=== PATIENT | female | born 1960 | race Two or more races ===

== ENCOUNTER 2023-12-02 21:39 | Emergency (ER) | payer MEDICARE, MEDICAID, SELFPAY ==
--- NOTE | ~2023-12-02 | XR_ITS ---
EXAMINATION: XR KNEE, RIGHT CLINICAL INFORMATION: Fall, right knee pain COMPARISON: None available. TECHNIQUE: Four views of the right knee. FINDINGS: No fracture. There is a trace suprapatellar knee joint effusion. Alignment is anatomic. Joint spaces are maintained. No abnormal soft tissue calcification. XR/XR knee RT 3V IMPRESSION: Trace knee joint effusion. No acute osseous process
--- NOTE | ~2023-12-02 | CT_ITS ---
EXAMINATION: CT ABDOMEN AND PELVIS WITHOUT CONTRAST CLINICAL INFORMATION: Fall with back and hip pain COMPARISON: None available. TECHNIQUE: Multidetector volumetric imaging was performed from the superior aspect of the liver through the pubic symphysis. Sagittal and coronal reformatted images were obtained on the technologist's workstation. This CT examination was performed using dose optimization techniques as appropriate, variously including the following: *Automated exposure control *Adjustment of mA and/or kV according to patient size (this includes techniques or standardized protocols for targeted exams where dose is matched to indication/reason for exam; i.e. extremities or head) *Use of iterative reconstruction technique DLP: 914 mGy-cm FINDINGS: LUNG BASES: The visualized lung bases are unremarkable. LIVER, GALLBLADDER, AND BILIARY TREE: The liver is normal in size, shape, and attenuation. 1.5 cm simple cyst in the right lobe of liver No biliary ductal dilatation is present. The gallbladder is unremarkable with no evidence of radiopaque gallstones, gallbladder wall thickening, or obvious pericholecystic inflammatory changes. PANCREAS: Unremarkable. SPLEEN: Unremarkable. ADRENAL GLANDS: Unremarkable. KIDNEYS AND URETERS: The kidneys are normal in size, shape, and attenuation. No hydronephrosis, hydroureter, or calculi seen. No perinephric stranding. BLADDER: Unremarkable. GASTROINTESTINAL TRACT: The small and large bowel are unremarkable. The appendix is unremarkable. ABDOMINAL WALL: No significant hernia is appreciated. LYMPH NODES: Normal. VASCULAR: Scattered atherosclerotic wall calcifications PELVIC VISCERA: The uterus and adnexa are unremarkable. OSSEOUS STRUCTURES: Degenerative disc disease in the lumbar spine. No acute fractures. CT/CT abdomen pelvis wo IV con IMPRESSION: No acute process. No acute fracture. Degenerative disc disease in the lumbar spine.
--- NOTE | ~2023-12-02 | CT_ITS ---
EXAMINATION: CT HEAD WITHOUT CONTRAST CLINICAL INFORMATION: Headache. COMPARISON: None available. TECHNIQUE: Contiguous axial imaging was performed from the skull base to vertex without intravenous administration of contrast. This CT examination was performed using dose optimization techniques as appropriate, variously including the following: *Automated exposure control *Adjustment of mA and/or kV according to patient size (this includes techniques or standardized protocols for targeted exams where dose is matched to indication/reason for exam; i.e. extremities or head) *Use of iterative reconstruction technique DLP: 673 mGy-cm FINDINGS: The lateral, third and fourth ventricles are normally outlined. The cortical sulci and basal cisterns are normally outlined as well. There is no acute territorial defect, hemorrhage or midline shift. The extra-axial spaces are unremarkable. Calvarium: Intact. Maxillofacial sinuses and mastoids: Clear as visualized. CT/CT head/brain wo IV con IMPRESSION: No acute intracranial pathology.
[2023-12-02 21:51] VITALS: BP 149/76; PULSE 75; RESP 18; TEMP 36.6; O2SAT 98
[2023-12-02 21:52] VITALS: BP 144/78; BP 149/76; PULSE 75; PULSE 84; RESP 16; TEMP 36.6; O2SAT 98; BMI 29.2
--- NOTE | 2023-12-02 22:12 | ECG_ITS ---
Test Reason : FALL Blood Pressure : / mmHG Vent. Rate : 069 BPM Atrial Rate : 069 BPM P-R Int : 158 ms QRS Dur : 078 ms QT Int : 400 ms P-R-T Axes : 038 009 035 degrees QTc Int : 428 ms Normal sinus rhythm Normal ECG No previous ECGs available Referred By: Amalia Bauman Electronically Signed By:GERMAINE MEIER MD
--- NOTE | 2023-12-02 22:14 | ED_ITS ---
HPI - Fall General Chief Complaint: Fall Stated Complaint: fall at 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 Patient fell on some liquid subsequently had dizziness has pain to her back pain radiating to her flank. Pain on movement of the right hip. Pain on movement of the right knee. No history of coronary artery disease. No fever no chills. No chest pain. No diaphoresis. No focal weakness. Patient is from home Related Data Allergies Allergy/AdvReac Type Severity Reaction Status Date / Time codeine Allergy Unknown Verified 12/02/23 21:59 Review of Systems 2 Review of Systems: Positive back pain Positive knee pain Positive dizziness Yes all other systems are reviewed and are negative [facility] Past Medical History Source: unable to obtain Social History Social History Smoked in Last 30 Days: No Advance Directives: No Advance Directives Information Provided: No Patient : No Physical Exam 2 Vital Signs: Vital Signs: Last Vital Signs Temp 97.8 F 12/02/23 21:52 Pulse 75 12/02/23 21:52 Resp 18 12/02/23 23:51 BP 149/76 H 12/02/23 21:52 Pulse Ox 98 12/02/23 21:52 O2 Del Method Room Air 12/02/23 21:52 BMI result Body Mass Index 29.2 Appearance: Alert. Oriented X3. No acute distress. Eyes: Pupils equal, round and reactive to light. ENT: Pharynx normal. Neck: Normal inspection. Neck supple. No lymph nodes noted. No crepitus CVS: Normal heart rate and rhythm. Pulses normal. Normal S1 and S2 Respiratory: No respiratory distress. Breath sounds normal. No Wheezing. No rales Abdomen: Soft and nontender. No rigidity. No distention. good BS x4 Skin: Skin warm and dry. Normal skin color. Normal skin turgor. Extremities: No lower extremity edema. Neurovascular intact to all extremities. Positive pain on movement of the right knee. Range of motion limited. There has no gross deformity noted. Distal pulses intact. Sensation intact. Skin intact. Back exam: Pain on palpation of the mid back. Pain on palpation of the flank area on the right side. Neuro: Oriented X 3. No motor deficit. No sensory deficit. Moving all extermities. No slurred speech Medications Administered Discontinued Medications Generic Name Dose Route Start Last Admin Trade Name Deisy PRN Reason Stop Dose Admin Hydromorphone HCl 0.5 mg 12/02/23 23:32 12/02/23 23:51 Hydromorphone Hcl 0.5 Mg/0.5 Ml Syringe IVPUSH 12/02/23 23:33 0.5 mg ONCE ONE Administration Protocol Sodium Chloride 1,000 mls @ 999 mls/hr 12/02/23 22:15 12/02/23 23:59 Ns IV 12/02/23 23:15 Infused .Q1H1M KETAN Infusion Medical Decision Making Medical Decision Making [facility] Narrative: Patient is 62 years old fell accidentally at [employer]. Complaining of dizziness. CT scan of the head was done was grossly negative for any acute evidence of fracture no bleed. Also complaining of lower back pain and also pain to the right hip and pain to the right knee. CT scan of the abdomen pelvis was done. It showed no acute evidence of bleeding. No spinal fracture. No evidence of any hip fracture. X-ray of the knee showed no acute evidence of fracture. Small amount effusion was noted. My interpretation of patient's EKG showed a sinus rhythm heart rate is 75 NH QRS QTC normal no acute ST segment elevation patient's hemoglobin is 13.6 there is no evidence for anemia patient's kidney functions are normal. She is well-appearing she has no acute distress will discharge patient. Differential Diagnosis Differential Diagnoses: The differential diagnosis associated with the presentation includes Fall, contusion, fracture, arrhythmia, Lab Data [facility] Lab Attestation statement: I reviewed the patient's lab results. 12/02/23 22:27 12/02/23 22:27 Labs: Lab Results 12/02/23 Range/Units 22:27 WBC 6.0 (4.8-10.8) X10*3/uL RBC 4.69 (4.20-5.50) X10*6/uL Hgb 13.6 (12.0-16.0) g/dl Hct 40.0 (37.0-47.0) % MCV 85.3 (80.0-98.0) fL MCH 29.0 (27.0-33.0) pg MCHC 34.0 (31.0-35.0) g/dl RDW 13.4 (11.0-16.0) % Plt Count 338 (160-400) X10*3/uL MPV 9.4 (9.4-12.3) fL Immature Gran % (Auto) 0.5 H (0.0-0.4) % Neut % (Auto) 40.1 L (45-73) % Lymph % (Auto) 49.2 H (20-40) % Mcdonough % (Auto) 6.7 (2-11) % Eos % (Auto) 2.5 (0-4) % Baso % (Auto) 1.0 (0-2) % Lymph # (Auto) 2.9 (1.2-4.9) X10*3/uL Mcdonough # (Auto) 0.4 (0.1-1.2) X10*3/uL Eos # (Auto) 0.2 (0.0-0.4) X10*3/uL Baso # (Auto) 0.1 (0.0-0.2) X10*3/uL Abs Immat Gran (auto) 0.03 (0.00-0.03) X10*3/uL Absolute Neuts (auto) 2.4 (2.0-8.3) x10*3/uL Absolute Nucleated RBC 0.000 (0.0-0.012) X10*3/uL Nucleated RBC % (auto) 0.0 (0.0-0.2) /100WBC Sodium 139 (135-145) mmol/L Potassium 3.7 (3.3-5.1) mmol/L Chloride 106 (96-108) mmol/L Carbon Dioxide 24 (22-29) mmol/L Anion Gap 13 (12-20) BUN 12 (9-16) mg/dL Creatinine 0.89 (0.5-1.4) mg/dL Estim Creat Clear Calc 59.5 Estimated GFR > 60 Random Glucose 102 (60-115) mg/dL Calcium 9.9 (8.4-10.2) mg/dL Troponin I High Sens < 2.7 (<3.5-17.0) ng/L Independent Interpretation I performed an independent interpretation of an: EKG (EKG showed a sinus rhythm heart rate is 70 NH QRS QTC normal no acute ST segment elevation), Plain X-Ray (X-ray of the knee was grossly negative) and CT Scan (CT scan of the head was grossly negative for acute evidence of bleeding no fracture) Radiology Impression Discussion of test interpretation with radiology: I have reviewed the radiologist's reading. Independent Historian Clinical information obtained from an independent historian. History obtained from or confirmed by: Spouse Discharge Plan Discharge Clinical Impression: Head injury, Contusion Patient Disposition: Home, Self-Care Instructions: Head Injury (ED), Contusion in Adults (ED) Referrals: Physician,Alicja J [Primary Care Provider] - 12/06/23 Print Language: Latvian
[2023-12-02 22:31] LABS: MANUAL DIFF FLAG NO
[2023-12-02 22:34] LABS: Basophils Absolute Auto 0.1 X10*3/uL (0.0-0.2); Eosinophils Absolute Auto 0.2 X10*3/uL (0.0-0.4); Eosinophils Percent Auto 2.5 % (0-4); Hemoglobin 13.6 g/dl (12.0-16.0); Imm Gran Abs Auto 0.03 X10*3/uL (0.00-0.03); Imm Gran Pct Auto 0.5 % (0.0-0.4); Lymphocytes Absolute Auto 2.9 X10*3/uL (1.2-4.9); Lymphocytes Percent Auto 49.2 % (20-40); Mean Corpuscular Volume 85.3 fL (80.0-98.0); Mean Platelet Volume 9.4 fL (9.4-12.3); Monocytes Absolute Auto 0.4 X10*3/uL (0.1-1.2); Monocytes Percent Auto 6.7 % (2-11); Neutrophils Absolute Auto 2.4 x10*3/uL (2.0-8.3); Neutrophils Percent Auto 40.1 % (45-73); Platelet Count 338 X10*3/uL (160-400); Red Blood Count 4.69 X10*6/uL (4.20-5.50); Red Cell Distribution Width 13.4 % (11.0-16.0)
[2023-12-02] MEDS: 0.9 % Sodium Chloride 1,000 ML 999 ML IV (22:34)
[2023-12-02 22:44] LABS: Anion Gap 13 (12-20); Blood Urea Nitrogen 12 mg/dL (9-16); Calcium 9.9 mg/dL (8.4-10.2); Carbon Dioxide 24 mmol/L (22-29); Chloride 106 mmol/L (96-108); Creatinine Clr Calc Pharmacy 59.5; Estimated Glomerular Filt Rate > 60; Glucose Random 102 mg/dL (60-115); Potassium 3.7 mmol/L (3.3-5.1); Sodium 139 mmol/L (135-145)
[2023-12-02 22:54] LABS: Troponin-I High Sensitivity < 2.7 ng/L (<3.5-17.0)
[2023-12-02 23:51] VITALS: RESP 18
[2023-12-02] MEDS: HYDROmorphone HCl 0.5 MG/0.5 ML SYRINGE IVPUSH (23:51)
--- NOTE | 2023-12-02 23:59 | PC.NURSE ---
Patient is alert and oriented x3, Ivorian speaking only. Patient's son at bedside. He is Hong Konger speaking. Patient requested patient's son to interpret for her. 20 G IV line established in L AC, labs drawn and sent to lab. EKG completed. Patient medicated per MAR for 10/10 pain in lower back, right knee, and headache. Bolus of 1L of NS started and infusing w/o issues. Patient is able to make her needs know. Plan of care ongoing.
[2023-12-03 02:00] VITALS: BP 123/70; PULSE 63; RESP 16; TEMP 36.5; O2SAT 96
[2023-12-03 02:27] VITALS: BP 123/70; PULSE 63; RESP 16; TEMP 36.5; O2SAT 96
== END 2023-12-03 02:28 | disposition home or self-care (01) ==
PROVIDERS: Emergency Provider Emergency Medicine Emergency Medical Services
DX: S00.93XA Contusion of unspecified part of head, initial encounter (principal); S89.91XA Unspecified injury of right lower leg, initial encounter; M54.50 Low back pain, unspecified; R42 Dizziness and giddiness; R10.9 Unspecified abdominal pain; M25.561 Pain in right knee; R07.81 Pleurodynia; W01.0XXA Fall on same level from slipping, tripping and stumbling without subsequent striking against object, initial encounter; Y93.9 Activity, unspecified; Y92.512 Supermarket, store or market as the place of occurrence of the external cause; Y99.8 Other external cause status; Z79.899 Other long term (current) drug therapy
CPT/HCPCS: 36415; 70450; 73562; 74176; 80048; 84484; 85025; 93005; 96361; 96374; 99284; 99285; J1170

== ENCOUNTER → 2023-12-02 22:12 | Outpatient (BNV) | payer MEDICARE, MEDICAID, SELFPAY | PROVIDERS: Emergency Provider Emergency Medicine Emergency Medical Services; Visit Provider Internal Medicine Cardiovascular Disease | DX: I49.9 Cardiac arrhythmia, unspecified (principal); M54.50 Low back pain, unspecified | CPT/HCPCS: 93010 ==